=== PATIENT | male | born 1970 | race Caucasian/White ===

== ENCOUNTER 2020-04-02 17:26 | Emergency (ER) | payer SELFPAY ==
[~2020-04-02] VITALS: Ht 165.1 cm; Wt 72.6 kg
[2020-04-02 17:36] VITALS: Ht 165.1 cm; Wt 72.6 kg
[2020-04-02 18:34] LABS: BASOPHIL % 0.9 % (0.2-1.5); PLATELET COUNT 223 x10^3mcL (152-348); RED CELL DISTRIBUTION WIDTH 12.4 % (12.1-16.2)
[2020-04-02 18:42] LABS: CALCIUM 8.4 mg/dL (8.5-10.1); CHLORIDE SERUM 98 mmol/L (98-107); GFR1 > 60 mL/min; GLUCOSE SERUM 395 mg/dL (74-106); POTASSIUM SERUM 3.8 mmol/L (3.5-5.1); SODIUM SERUM 131 mmol/L (136-145)
[2020-04-02 18:46] LABS: ALBUMIN 3.6 g/dL (3.4-5.0); ALKALINE PHOSPHATASE 89 U/L (46-116); ALT/SGPT 30 U/L (16-63); AST/SGOT 12 U/L (15-37); BILIRUBIN TOTAL 0.3 mg/dL (0.20-1.00); TOTAL PROTEIN, SERUM 7.2 g/dL (6.4-8.2)
[2020-04-02 19:46] VITALS: BP 122/75
== END 2020-04-02 19:46 | disposition home or self-care (01) ==
LOC: ED 17:26
PROVIDERS: Emergency Medicine
DX: R07.9 Chest pain, unspecified (principal); I10 Essential (primary) hypertension; E11.9 Type 2 diabetes mellitus without complications